=== PATIENT | male | born 1990 | race Caucasian/White ===

== ENCOUNTER 2017-12-11 16:49 | Emergency (ER) | payer OTHER, SELFPAY ==
[2017-12-11 17:10] VITALS: BP 141/83; PULSE 82; RESP 18; TEMP 36.8; O2SAT 99; BMI 24.4
--- NOTE | 2017-12-11 17:53 | ED_ITS ---
HPI - URI/Sore Throat <ANTIONE Cheung - Last Filed: 12/11/17 22:00> General Chief Complaint: Upper Respiratory Symptoms Stated Complaint: SPITTING UP BLOOD Time Seen by Provider: 12/11/17 19:00 Source: patient Mode of arrival: ambulatory Limitations: no limitations History of Present Illness HPI Narrative: 27-year-old male here for complaint of having some blood-tinged sputum a few times over the weekend. He does report that slight a of increased cough recently as he has quit smoking. He denies any chest pain. No throat sore throat or no nasal congestion. He denies any cold-like symptoms. No fevers no chills. He reports that he recently had TB testing a few months ago when he left [facility] and states that it was negative. He also states that he did have some episodes of heartburn over the past few months as well. He denies having any cough today. He denies any ghassan blood. No other concerns or complaints MD Complaint: other (Blood tinged sputum) Related Data Allergies Allergy/AdvReac Type Severity Reaction Status Date / Time No Known Drug Allergies Allergy Verified 12/11/17 17:13 Review of Systems <ANTIONE Cheung - Last Filed: 12/11/17 22:00> Constitutional Denies chills, Denies fever(s), Denies lethargy and Denies weakness Eyes Denies change in vision, Denies eye discharge, Denies irritation and Denies loss of vision ENT Comments: Blood tinged sputum Cardiovascular Denies chest pain, Denies irregular heart rhythm, Denies lightheadedness, Denies palpitations, Denies dyspnea, Denies dyspnea on exertion and Denies orthopnea Respiratory Denies cough, Denies dyspnea, Denies dyspnea on exertion and Denies wheezing Gastrointestinal Gastrointestinal: Denies abdominal pain, Denies change in bowel habits, Denies diarrhea, Denies nausea and Denies vomiting Genitourinary Denies hematuria, Denies flank pain, Denies urinary incontinence and Denies urinary urgency Musculoskeletal Denies back pain, Denies muscle weakness, Denies numbness and Denies tingling Integumentary/Breasts Denies pruritus, Denies erythema, Denies rash and Denies wounds Neurologic Denies confusion, Denies loss of vision, Denies numbness, Denies tingling and Denies weakness Psychiatric Denies anxiety, Denies confusion, Denies depression, Denies homicidal ideation and Denies suicidal ideation Endocrine Denies palpitations Hematologic/Lymphatic Denies easy bruising Allergic/Immunologic Denies wheezing Exam <ANTIONE Cheung - Last Filed: 12/11/17 22:00> Initial Vital Signs Initial Vital Signs: Vital Signs Temperature 98.3 F 12/11/17 17:10 Pulse Rate 82 12/11/17 17:10 Respiratory Rate 18 12/11/17 17:10 Blood Pressure 141/83 H 12/11/17 17:10 Pulse Oximetry 99 12/11/17 17:10 Const General: cooperative and well developed Nutritional Appearance: well nourished Orientation: alert, awake, oriented x3 and not confused HENMT Nose: external nose normal and No nasal discharge Face and sinus: sinus tenderness Mouth: oral mucosae normal, oropharynx normal and moist mucous membranes Teeth and gingiva: dentition normal Eyes Conjunctivae: conjunctivae normal Sclera: sclerae normal Pupils: PERRL EOM: EOM intact bilaterally Resp Effort & Inspection: normal respiratory effort, able to speak in complete sentences, no respiratory distress and no use of accessory muscles Auscultation: clear to auscultation bilaterally, no rales, no rhonchi and no wheezes Cardio Rate: regular rate Rhythm: regular rhythm Heart Sounds: no click, no gallops, no murmurs and no rubs Skin General: no rashes or lesions noted, No jaundice and No petechiae Neuro General: alert, oriented x3, gait normal and no focal motor deficits Speech: speech normal <Dalton Degroot DO - Last Filed: 12/12/17 03:49> Initial Vital Signs Initial Vital Signs: Vital Signs Temperature 98.3 F 12/11/17 17:10 Pulse Rate 82 12/11/17 17:10 Respiratory Rate 18 12/11/17 17:10 Blood Pressure 141/83 H 12/11/17 17:10 Pulse Oximetry 99 12/11/17 17:10 Course <ANTIONE Cheung - Last Filed: 12/11/17 22:00> Orders Ordered: ED Orders 12/11/17 18:31 XR chest 2V Stat Vital Signs - 8 hr 12/11/17 20:05 Pulse Rate 75 Respiratory Rate 16 Blood Pressure 140/89 H Pulse Oximetry 99 <Dalton Degroot DO - Last Filed: 12/12/17 03:49> Orders Ordered: ED Orders 12/11/17 18:31 XR chest 2V Stat Vital Signs - 8 hr 12/11/17 20:05 Pulse Rate 75 Respiratory Rate 16 Blood Pressure 140/89 H Pulse Oximetry 99 MDM - URI/Sore Throat <ANTIONE Cheung - Last Filed: 12/11/17 22:00> Differential Diagnosis Differential diagnosis: Likely upper respiratory infection, viral infection and pharyngitis Imaging Data Chest x-ray: Radiologist's impression: Signed Patient: INDIO LOVE MR#: [id number] : 1990 Acct:[id number] Age/Sex: 27 / M Date of Service: 12/11/17 Loc: ED Accession Number: [id number] Procedure: XR chest 2V Ordering Provider: Sonny Garcia PROCEDURE: XR CHEST 2V INDICATIONS: Complaint of having blood in his phlegm TECHNIQUE: 2 views of the chest were acquired. COMPARISON: None. FINDINGS: Surgical changes and devices: None. Lungs and pleura: No pleural effusions or pneumothorax. Lungs are clear. Mediastinum: Mediastinal contours are normal. Heart size is normal. Bones and chest wall: No suspicious bony abnormalities. Soft tissues appear unremarkable. IMPRESSION: Normal for age, source of current symptoms is not seen. Dictated by: Fabio Zamarripa M.D. on 12/11/2017 at 18:53 Approved by: Fabio Zamarripa M.D. on 12/11/2017 at 18:53 [facility] [place] Narrative Medical decision making narrative: Chest x-ray was obtained was negative for any acute findings. Differential between whether blood is due to irritation to upper airways or nasal passages or whether this may be due to irritation to his esophagus. Patient states he is not having any blood tinged sputum at this time. Will have follow-up with primary care provider for for further evaluation and treatment. Return emergency room for any worsening symptoms. Discharge Plan Departure Patient Disposition: Home Clinical Impression: Blood-tinged sputum Discharge Date/Time: 12/11/17 20:11 Interventions: ED Discharge Assessment Last Done: 12/11/17 20:05 Instructions: DI for Hemoptysis Activity Restrictions/Additional Instructions: Chest x-ray was obtained was negative for any acute findings. There may be different causes Javier and had some blood-tinged sputum earlier today as it may have come from the nasal passages that might be irritated due to dry whether or viral upper respiratory infection same for the pharynx area. Follow up with her primary care provider in the next few days for re-evaluation. For any worsening symptoms return to the emergency room. Referrals: [facility] [Provider Group] <Dalton Degroot DO - Last Filed: 12/12/17 03:49> Cosign ED Attending Coskellyature Attestation: I was immediately available in the department for consultation. Documentation has been reviewed. I agree with assessment and plan.
--- NOTE | 2017-12-11 18:31 | DI.RAD.S_ITS ---
PROCEDURE: XR CHEST 2V INDICATIONS: Complaint of having blood in his phlegm TECHNIQUE: 2 views of the chest were acquired. COMPARISON: None. FINDINGS: Surgical changes and devices: None. Lungs and pleura: No pleural effusions or pneumothorax. Lungs are clear. Mediastinum: Mediastinal contours are normal. Heart size is normal. Bones and chest wall: No suspicious bony abnormalities. Soft tissues appear unremarkable. IMPRESSION: Normal for age, source of current symptoms is not seen. Dictated by: Fabio Zamarripa M.D. on 12/11/2017 at 18:53 Approved by: Fabio Zamarripa M.D. on 12/11/2017 at 18:53
[2017-12-11 19:41] VITALS: BP 136/87; PULSE 69; RESP 14; O2SAT 98
[2017-12-11 20:05] VITALS: BP 140/89; PULSE 75; RESP 16; O2SAT 99
== END 2017-12-11 20:11 | disposition home or self-care (01) ==
PROVIDERS: Emergency Provider Nurse Practitioner Family
DX: R04.2 Hemoptysis (principal)
CPT/HCPCS: 71046; 99282; 99283

== ENCOUNTER 2019-06-19 15:30 | Outpatient (RCR) | payer OTHER, SELFPAY ==
--- NOTE | 2019-05-19 16:32 | ST.OPIE ---
Visit Care Team Role Provider Type Anthony Bay MD Primary Care Provider Non-Staff Specialty: Family Practice Address: [address] [place] [address], [place], [address] Email: Sonny Hurley MD Attending Provider Non-Staff Specialty: Internal Medicine Address: [address] [place] [address], [address] Email: Speech-Language Pathology Initial Evaluation CLINICAL REHABILITATION COORDINATOR Language Evaluation Start: 05/15/19 17:46 Freq: Status: Active Protocol: Document 05/15/19 17:46 RADHA (Rec: 05/15/19 18:19 RADHA [id number]) Language Evaluation Session Time Visit Start Time 10:30 Visit Stop Time 11:30 Total Visit Minutes 60 Visit Information Visit Number Initial Evaluation Plan of Care Dates 05/15/19 - 08/07/19 Next Note Type Next Note Type Treatment Note Referral Referring Physician Dr. 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 He continues to experience intermittent headaches daily and occasional dysfluent speech, which he describes as halting and sometimes inclusion of sounds to words that don't belong (e. g., stay for say). Since the injury, he also intermittently experiences dizziness and blurred vision, usually together, which last for ~15 min at a time. He has not been seen by Opthamology or Optometry. He reported a history of attention deficits which were treated with a variety of medications; however, since the injury, he has had increased difficulty focusing on tasks and conversation and is very easily distracted. Additionally, he described his memory as iffy and relies on his roommate to remember to take medications and has difficulty tracking and remembering appointments. 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 He reports feeling depressed about doing so little and feeling that no one cares if I show up or not. He is currently undergoing medical evaluations to determine if he will remain in the [facility] or be discharged. He received Physical Therapy for his shoulders for 2 yrs, ending 6 mos ago. He has little to keep himself busy outside of work besides visiting his girlfriend in [place] on weekends. The pt does report seeing a mental health provider associated with the [employer]. The pt lives in [place] with an elderly female roommate and assists in caring for the 5 dogs that live with them and with housekeeping and maintenance. His family lives in [facility], where the pt is from. Hearing Hearing Level Needs Hearing Check Vision Vision Status Impaired [place] Language Language(s) Spoken in the Home Yi Educational Status Education Level High School Occupational Status Occupation Status [employer], active but restricted duties Previous Therapy Previous Speech-Language Therapy No Subjective Subjective The pt arrived on time and provided case history supplemental to medical records. - Informal Assessment Receptive Language Normal Yes: In spontaneous conversation Expressive Language Normal WFL in conversation; Requires further evaluation Articulation Normal No: Occasional hesitation, misarticulation Assessment Findings The pt exhibited expressive and receptive language skills WNL in egocentric conversation . Speech was 100% intelligible but occasional halting and misarticulations were observed (e.g., stay for say) which the pt self-corrected. The pt reported significant frustration with these errors and desire to eliminate them. He noted that they appear to increase in correlation with increased stress or cognitive load, such as when he discusses topics that are highly personal or carry emotional value to him, or when he feels pressure to speak in conversation. Recommendations Further assessment of speech fluency and expressive/ receptive language Formal Assessment Standardized Test Cognitive Linguistic Quick Test Administration Complete Results The pt scored WNL on all subtests. Lowest score was obtained generative naming task (12 animals and 14 words beginning with M in 60 seconds each), and the pt made one error in design generation task in which he copied a demonstration design. The pt also duplicated one of his own designs but self-corrected this error. - Receptive Language - Expressive Language - Recommendations Recommendations Further assessment of speech and language skills, particularly speech fluency and language processing skills , as well as attention and memory skills for functional tasks. Treatment Goals Short Term Goals 1. The pt will participate in further assessment of speech, language, and cognitive linguistic skills to guide POC . 2. The pt will perform delayed memory tasks of moderate complexity to increase memory skills and maintain/increase independence with functional tasks. 3. The pt will perform selective attention tasks of moderate difficulty (e.g., performing reading tasks in presence of environmental distractors) with 80% accuracy to improve ability to perform personal and work responsibilities 4. The pt will read paragraphs , using speech strategies as needed, with 90% fluency to improve speech fluency and intelligibility and to increase confidence in conversational speech skills. Additional goals to be determined pending assessment results. Etcher Apprentice Goals 1. The pt will exhibit speech fluency in conversation WNL and report confidence in performing spontaneous speaking tasks with a variety of speakers and settings to WFL, as measured by pt report and clinician judgment. 2. The pt will demonstrate independence with functional tasks (e.g., medicine management, daily schedule, etc.) WNL to increase safety and independence in performing ADLs. 3. The pt will perform complex selective attention tasks with 80% accuracy to improve ability to attend to and complete personal and work responsibilities. Additional goals to be determined pending assessment results.
--- NOTE | 2019-06-03 18:04 | ST.OPTN ---
Visit Care Team Role Provider Type Anthony Bay MD Primary Care Provider Non-Staff Address: [address] [place] [address], [place], [address] Sonny Hurley MD Attending Provider Non-Staff Address: [address] [place] [address], [address] CONTAINERS SALES REPRESENTATIVE Treatment Note CONTAINERS SALES REPRESENTATIVE Treatment Note Start: 05/15/19 17:34 Freq: Status: Active Protocol: Document 06/03/19 17:00 RADHA (Rec: 06/03/19 17:02 RADHA [id number]) Speech Pathology Treatment Note Session Time Visit Start Time 09:30 Visit Stop Time 10:18 Total Visit Minutes 48 Visit Information Visit Number 1 Plan of Care Dates 05/15/19 - 08/07/19 Insurance Information [facility] Setting Treatment Setting Outpatient Care Visit Type Note Type Treatment Note Next Note Type Next Note Type Treatment Note General Information General Information The pt is a 28-yr-old male who 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 He continues to experience intermittent headaches daily and occasional dysfluent speech, which he describes as halting and sometimes inclusion of sounds to words that don't belong (e. g., stay for say). Since the injury, he also intermittently experiences dizziness and blurred vision, usually together, which last for ~15 min at a time. He has not been seen by Opthamology or Optometry. He reported a history of attention deficits which were treated with a variety of medications; however, since the injury, he has had increased difficulty focusing on tasks and conversation and is very easily distracted. Additionally, he described his memory as iffy and relies on his roommate to remember to take medications and has difficulty tracking and remembering appointments. 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 He reports feeling depressed about doing so little and feeling that no one cares if I show up or not. He is currently undergoing medical evaluations to determine if he will remain in the [facility] or be discharged. He received Physical Therapy for his shoulders for 2 yrs, ending 6 mos ago. He has little to keep himself busy outside of work besides visiting his girlfriend in [place] on weekends. The pt does report seeing a mental health provider associated with the [employer]. The pt lives in [place] with an elderly female roommate and assists in caring for the 5 dogs that live with them and with housekeeping and maintenance. His family lives in [facility], where the pt is from. Subjective Observations/Patient Presentation The pt arrived on time. No new complaints. He was agreeable to recording speech sample for the clinician's analysis. The pt reported impulsivity in speech and other activities, such as spending money, as additional areas of concern. Chief Complaint(s) Speech,Language,Cognitive Patient Knowledge/Awareness of CONTAINERS SALES REPRESENTATIVE Role Good in Treatment Objective Short Term Goals 1. The pt will participate in further assessment of speech, language, and cognitive linguistic skills to guide POC . 2. The pt will perform delayed memory tasks of moderate complexity to increase memory skills and maintain/increase independence with functional tasks. 3. The pt will perform selective attention tasks of moderate difficulty (e.g., performing reading tasks in presence of environmental distractors) with 80% accuracy to improve ability to perform personal and work responsibilities 4. The pt will read paragraphs , using speech strategies as needed, with 90% fluency to improve speech fluency and intelligibility and to increase confidence in conversational speech skills. Alf Goals 1. The pt will exhibit speech fluency in conversation WNL and report confidence in performing spontaneous speaking tasks with a variety of speakers and settings to WFL, as measured by pt report and clinician judgment. 2. The pt will demonstrate independence with functional tasks (e.g., medicine management, daily schedule, etc.) WNL to increase safety and independence in performing ADLs. 3. The pt will perform complex selective attention tasks with 80% accuracy to improve ability to attend to and complete personal and work responsibilities. Treatment Activities Continued assessment of pt's speech fluency and reading/ comprehension skills. Analyzed speech sample of conversation and reading task ([place]). Rate of speech in conversation = 174-190 syllables/min ( normal = 182.7 spm). Rate of speech in reading = 130 words/min (normal = 219.9 wpm), speech was significantly more halting than in conversation. Pt exhibited the following disfluency over course of the session: 5 episodes of single sound repetitions (n-notice, s -stutter, s-simple, h-his, s- sunlight), 1 episode of syllable repetition at the end of the word (silently-ly), and frequent interjections (e. g., um, er, uh). He did not exhibit accessory behaviors. The pt noted that stuttering increases when talking about personal/emotional topics with his mental health therapist and during recent neuropsych testing. He reported, I feel dumb when I stutter. It just feels like I know what I?m trying to say but I always say something different. Consulted with pt RE attention . He again reported being easily distracted by environmental noises and activity as well as by thoughts. These interfere with his ability to follow others' conversations, read, and take tests which are necessary for his advancement in the [employer]. Assessed pt's reading comprehension. The pt read 2 short passages. He answered implicit and inferential questions about the first passage with 77% accuracy and retold the 2nd passage with 78 % acc. Assessment Impairments Identified Attention,Cognitive-Linguistic Skills,Expressive Language, Reading Comprehension,Other Additional Impairments Identified Dysfluency Assessment of Improvement The pt presents with occasional mild disfluency in speech primarily including single sound repetitions and interjections, both of which are considered normal disfluencies; however, the frequency with which sound repetitions occur interferes with the pt's self-perception and value of self (he feels stupid). Rate of speech in conversation was WNL, while rate of speech in reading task was below normal. The pt also presented with mildly reduced reading comprehension and complains of significant difficulty with selective attention, which will be further assessed in future sessions. Reviewed with Patient Goals,Home Exercise Program Patient/Caregiver Understanding Good Plan Treatment Emphasis Next Session Assess & develop goals RE impulsivity in speech and spending Therapeutic Contents Client Education,Cognitive- Linguistic Training,Expressive Language Training,Fluency, Home Exercise Program, Information Processing,Reading Comprehension Provided Patient/Caregiver Instruction Home Exercise Program,Plan of Care,Questions/Concerns Therapy Recommendations Continue with Current Program
--- NOTE | 2019-06-12 13:31 | ST.OPTN ---
Visit Care Team Role Provider Type Anthony Bay MD Primary Care Provider Non-Staff Address: [address] [place] [address], [address] Sonny Hurley MD Attending Provider Non-Staff Address: [address] [place] [address], [address] SERVICE GIRL Treatment Note SERVICE GIRL Treatment Note Start: 05/15/19 17:34 Freq: Status: Active Protocol: Document 06/12/19 13:30 RADHA (Rec: 06/12/19 13:31 RADHA [email or web address]) Speech Pathology Treatment Note Visit Type Note Type Administrative Note Subjective Observations/Patient Presentation No show. Called and left vm. Reminded pt of next appt 06/19 @ 3:30.
--- NOTE | 2019-06-19 16:49 | ST.OPTN ---
Visit Care Team Role Provider Type Anthony Bay MD Primary Care Provider Non-Staff Address: [address] [place] [address], [place], [address] Sonny Hurley MD Attending Provider Non-Staff Address: [address] [place] [address], [address] PAYROLL ACCOUNTING CLERK Treatment Note PAYROLL ACCOUNTING CLERK Treatment Note Start: 05/15/19 17:34 Freq: Status: Active Protocol: Document 06/19/19 16:33 RADHA (Rec: 06/19/19 16:49 RADHA [email or web address]) Speech Pathology Treatment Note Session Time Visit Start Time 15:30 Visit Stop Time 16:20 Total Visit Minutes 50 Visit Information Visit Number 2 Plan of Care Dates 05/15/19 - 08/07/19 Insurance Information [facility] Setting Treatment Setting Outpatient Care Visit Type Note Type Administrative Note Next Note Type Next Note Type Treatment Note General Information General Information The pt is a 28-yr-old male who 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 He continues to experience intermittent headaches daily and occasional dysfluent speech, which he describes as halting and sometimes inclusion of sounds to words that don't belong (e. g., stay for say). Since the injury, he also intermittently experiences dizziness and blurred vision, usually together, which last for ~15 min at a time. He has not been seen by Opthamology or Optometry. He reported a history of attention deficits which were treated with a variety of medications; however, since the injury, he has had increased difficulty focusing on tasks and conversation and is very easily distracted. Additionally, he described his memory as iffy and relies on his roommate to remember to take medications and has difficulty tracking and remembering appointments. 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 He reports feeling depressed about doing so little and feeling that no one cares if I show up or not. He is currently undergoing medical evaluations to determine if he will remain in the [facility] or be discharged. He received Physical Therapy for his shoulders for 2 yrs, ending 6 mos ago. He has little to keep himself busy outside of work besides visiting his girlfriend in [place] on weekends. The pt does report seeing a mental health provider associated with the [employer]. The pt lives in [place] with an elderly female roommate and assists in caring for the 5 dogs that live with them and with housekeeping and maintenance. His family lives in [place] [facility], where the pt is from. Subjective Observations/Patient Presentation Pt arrived on time. Stated he forgot about his last appt and was apologetic. He also reported results of recent neuropsych testing were average and stated that similar testing throughout his childhood had results of above average. He is anticipating new prescription for ADHD but has not received them yet and expressed some frustration with this. Chief Complaint(s) Speech,Language,Cognitive Patient Knowledge/Awareness of PAYROLL ACCOUNTING CLERK Role Good in Treatment Objective Short Term Goals 1. The pt will participate in further assessment of speech, language, and cognitive linguistic skills to guide POC . 2. The pt will perform delayed memory tasks of moderate complexity to increase memory skills and maintain/increase independence with functional tasks. 3. The pt will perform selective attention tasks of moderate difficulty (e.g., performing reading tasks in presence of environmental distractors) with 80% accuracy to improve ability to perform personal and work responsibilities 4. The pt will read paragraphs , using speech strategies as needed, with 90% fluency to improve speech fluency and intelligibility and to increase confidence in conversational speech skills. Shelter Goals 1. The pt will exhibit speech fluency in conversation WNL and report confidence in performing spontaneous speaking tasks with a variety of speakers and settings to WFL, as measured by pt report and clinician judgment. 2. The pt will demonstrate independence with functional tasks (e.g., medicine management, daily schedule, etc.) WNL to increase safety and independence in performing ADLs. 3. The pt will perform complex selective attention tasks with 80% accuracy to improve ability to attend to and complete personal and work responsibilities. Treatment Activities Memory/Reading: Educated pt on memory strategies including association, visualization, rehearsal, and chunking. Given a paragraph in writing, the pt read the paragraph and then rewrote the paragraph from memory with 56% accuracy. Skilled feedback provided. Reading the paragraph again, the pt segmented information in chunks that were meaningful to him. Again he rewrote the paragraph, including exactly the same information (56% acc. ) indicating no immediate benefit from chunking and need for reinforcement and training of this and other memory strategies. Given a new written story including sequence of events, the pt read the story and then sequenced events from memory on a graph with 64% accuracy. The pt noted that when writing , he tends to write letters of words out of sequence. For example, when writing and, he will write nd and then go back to include a at the word initial position. He was unsure if he has always done this or not, but has only recently noticed it. Skilled feedback was provided and recommendations made to slow down and increase attention/ intention to sequence letters correctly. Suspect this is an attention deficit. Assessment Patient Response to Treatment Fair Rehab Potential Good Impairments Identified Attention,Cognitive-Linguistic Skills,Expressive Language, Reading Comprehension,Other Additional Impairments Identified Dysfluency Assessment of Improvement The pt demonstrates stimulability for using memory strategies to recall written text, which is a goal of his. He has a book he is highly interested in but is having difficulty attending to written text sufficiently to read it without need or re- reading paragraphs multiple times. He was receptive of initial training and provided useful feedback throughout the session, demonstrating motivation and interest in improving his skills. He also informed of tendency to miss/ missequence letters of words as he writes, which is likely an attention deficit that will be looked at more closely at next session. Reviewed with Patient Goals,Home Exercise Program Patient/Caregiver Understanding Good Plan Treatment Emphasis Next Session Assess & develop goals RE impulsivity in speech and spending Therapeutic Contents Client Education,Cognitive- Linguistic Training,Expressive Language Training,Fluency, Home Exercise Program, Information Processing,Reading Comprehension Provided Patient/Caregiver Instruction Home Exercise Program,Plan of Care,Questions/Concerns Therapy Recommendations Continue with Current Program
--- NOTE | 2019-06-24 10:54 | ST.OPTN ---
Visit Care Team Role Provider Type Anthony Bay MD Primary Care Provider Non-Staff Address: [address] [place] [address], [id number] Sonny Hurley MD Attending Provider Non-Staff Address: [address] [place] [address], [id number] PATENT LAWYER Treatment Note PATENT LAWYER Treatment Note Start: 05/15/19 17:34 Freq: Status: Active Protocol: Document 06/24/19 10:51 RADHA (Rec: 06/24/19 10:54 RADHA [id number]) Speech Pathology Treatment Note Visit Information Plan of Care Dates 05/15/19 - 08/07/19 Insurance Information [facility] Setting Treatment Setting Outpatient Care Visit Type Note Type Administrative Note Subjective Observations/Patient Presentation No show. Called pt and left VM informing of missed appt and clinic No-Show policy.
--- NOTE | 2019-07-01 12:02 | ST.OPDS ---
Visit Care Team Role Provider Type Anthony Bay MD Primary Care Provider Non-Staff Address: [address] [place] [address], [place], [address] Sonny Hurley MD Attending Provider Non-Staff Address: [address] [place] [address] [place] [address], [id number] MOISTURE CONDITIONER OPERATOR Treatment Note MOISTURE CONDITIONER OPERATOR Treatment Note Start: 05/15/19 17:34 Freq: Status: Active Protocol: Document 07/01/19 11:47 RADHA (Rec: 07/01/19 11:54 RADHA [email or web address]) Speech Pathology Treatment Note Setting Treatment Setting Outpatient Care Visit Type Note Type Discharge Summary General Information General Information The pt is a 28-yr-old male who 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 He experienced brief loss of consciousness and several hours of post- traumatic amnesia (JEWEL INSERTER), followed by slurred speech and constant headache for over a week. He continues to experience intermittent headaches daily and occasional dysfluent speech, which he describes as halting and sometimes inclusion of sounds to words that don't belong (e. g., stay for say). Since the injury, he also intermittently experiences dizziness and blurred vision, usually together, which last for ~15 min at a time. He has not been seen by Opthamology or Optometry. He reported a history of attention deficits which were treated with a variety of medications; however, since the injury, he has had increased difficulty focusing on tasks and conversation and is very easily distracted. Additionally, he described his memory as iffy and relies on his roommate to remember to take medications and has difficulty tracking and remembering appointments. 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 He reports feeling depressed about doing so little and feeling that no one cares if I show up or not. He is currently undergoing medical evaluations to determine if he will remain in the [facility] or be discharged. He received Physical Therapy for his shoulders for 2 yrs, ending 6 mos ago. He has little to keep himself busy outside of work besides visiting his girlfriend in [place] on weekends. The pt does report seeing a mental health provider associated with the [facility]. The pt lives in [place] with an elderly female roommate and assists in caring for the 5 dogs that live with them and with housekeeping and maintenance. His family lives in [facility], where the pt is from. Subjective Observations/Patient Presentation The pt missed today's appt, which is his 3rd No Show. MOISTURE CONDITIONER OPERATOR spoke with pt on phone. Pt reported having moved to [place] and requested discharge from services. MOISTURE CONDITIONER OPERATOR agreed and encouraged pt to continue ST services with a new therapist in [place], as he has not yet met his treatment goals. Pt verbalized understanding. Chief Complaint(s) Cognitive Objective Short Term Goals 1. The pt will participate in further assessment of speech, language, and cognitive linguistic skills to guide POC. GOAL MET 2. The pt will perform delayed memory tasks of moderate complexity to increase memory skills and maintain/increase independence with functional tasks. 3. The pt will perform selective attention tasks of moderate difficulty (e.g., performing reading tasks in presence of environmental distractors) with 80% accuracy to improve ability to perform personal and work responsibilities 4. The pt will read paragraphs, using speech strategies as needed, with 90% fluency to improve speech fluency and intelligibility and to increase confidence in conversational speech skills. Spring Setter Goals 1. The pt will exhibit speech fluency in conversation WNL and report confidence in performing spontaneous speaking tasks with a variety of speakers and settings to [facility], as measured by pt report and clinician judgment. 2. The pt will demonstrate independence with functional tasks (e.g., medicine management, daily schedule, etc.) WNL to increase safety and independence in performing ADLs. 3. The pt will perform complex selective attention tasks with 80% accuracy to improve ability to attend to and complete personal and work responsibilities. Assessment Patient Response to Treatment Good Rehab Potential Good Impairments Identified Attention,Cognitive-Linguistic Skills,Memory - Short Term, Memory - Working,Reading Comprehension Assessment of Improvement Darío continues with mild cognitive impairment, primarily in areas of attention and memory, secondary to TBI and exacerbated by history of ADHD. He has not met his treatment goals, and continued skilled intervention in his new area of residence is recommended. Over the course of tx, Darío has demonstrated improved ability to sustain attention to tasks of interest to him but is easily distracted by thoughts and environmental interference (auditory and visual) during conversation and other tasks that are of less interest to him. He exhibits occasional symptoms of normal disfluency; however, these episodes bother Darío, warranting further education and training of speech strategies to reduce frequency of occurrence. Plan Therapy Recommendations Discharge from Speech Therapy, Other Comment Recommend continuation of care in pt's new area of residence Suggested Referral Other Other Referrals Speech Therapy in [place]
== END 2019-07-02 13:16 ==
LOC: SP 15:30
PROVIDERS: PCP General Practice
DX: R41.840 Attention and concentration deficit (principal)
CPT/HCPCS: 92507; 92523